=== PATIENT | female | born 1990 | race Caucasian/White ===

== ENCOUNTER 2017-07-08 18:48 | Emergency (ER) | payer SELFPAY ==
[~2017-07-08] VITALS: Ht 162.6 cm; Wt 970.0 kg
[2017-07-08 20:37] LABS: PLATELET COUNT 294 x10^3mcL (130-400); RED CELL DISTRIBUTION WIDTH 13.2 % (11.5-14.5)
[2017-07-08 20:40] LABS: CALCIUM 9.4 mg/dL (8.5-10.1); CARBON DIOXIDE 21.8 mmol/L (21-32); CHLORIDE SERUM 100 mmol/L (98-107); GFR1 > 60 mL/min; GLUCOSE SERUM 114 mg/dL (74-106); SODIUM SERUM 137 mmol/L (136-145)
[2017-07-08 20:43] LABS: BASOPHIL % 0 % (0-2)
[2017-07-08 20:46] LABS: ALBUMIN 4.2 g/dL (3.4-5.0); ALKALINE PHOSPHATASE 78 U/L (46-116); ALT/SGPT 22 U/L (14-59); AMYLASE 40 U/L (25-115); AST/SGOT 20 U/L (15-37); BILIRUBIN TOTAL 0.78 mg/dL (0.20-1.00); LIPASE 80 IU/L (73-393)
[2017-07-08 20:59] LABS: TOTAL PROTEIN, SERUM 8.7 g/dL (6.4-8.2)
[2017-07-08 21:26] LABS: AMPHETAMINE QUAL UR NONE DETECTED (NEG <=1000)
[2017-07-08 23:19] VITALS: BP 140/32
== END 2017-07-08 23:19 | disposition home or self-care (01) ==
LOC: ED 18:48
PROVIDERS: Emergency Medicine
DX: R10.9 Unspecified abdominal pain (principal); R11.10 Vomiting, unspecified; R19.7 Diarrhea, unspecified; R06.4 Hyperventilation
CPT/HCPCS: 83880; 87046; 87046-59; J1885; J2060; J2405; J7030